=== PATIENT | male | born 1975 ===

== ENCOUNTER 2017-10-20 23:45 | Emergency (ER) | payer OTHER ==
[2017-10-21] MEDS: DICYCLOMINE 10 MG CAP PO (03:49)
== END 2017-10-21 04:09 | disposition home or self-care (01) ==
LOC: FTE 23:45
DX: A08.4 Viral intestinal infection, unspecified (principal); F17.210 Nicotine dependence, cigarettes, uncomplicated
CPT/HCPCS: 99284; Z7502